=== PATIENT | male | born 1955 | race Caucasian/White ===

== ENCOUNTER → 2016-11-02 15:20 | Outpatient (CLI) | payer BC ==
[2016-06-06 08:16] VITALS: BMI 24.1
[~2016-11-02 15:20] MED LIST: ADDERALL 5 MG TA5 M1 PO; ASPIRIN EC81 M1 PO; CALAN SR240 MG PO; CALAN120 MG; CELEBREX200 MG PO; COZAAR25 MG PO; CYMBALTA30 MG PO; DEXILANT60 MG PO; DILAUDID2 MG PO; DILAUDID4 MG PO; ELIQUIS2.5 MG PO; IMITREX6 MG/0.51 SQ; MULTIPLE VITAMI1 TA1 PO; NEXIUM40 MG PO; PERCOCET 10/3251 TA1 PO; ROXICODONE30 MG PO; SEROQUEL50 MG PO; TOPROL XL25 MG PO; TRIAMTERENE-HCT1 TA1 PO; WELLBUTRIN SR150 MG PO
== END | disposition home or self-care (01) ==
LOC: D.CT 15:20
DX: R10.0 Acute abdomen (principal)

== ENCOUNTER → 2016-12-21 19:05 | Outpatient (CLI) | payer BC ==
[2016-06-06 08:16] VITALS: BMI 24.1
[~2016-12-21 19:05] MED LIST changes: -CALAN SR240 MG PO; -CALAN120 MG; -IMITREX6 MG/0.51 SQ; -SEROQUEL50 MG PO
== END | disposition home or self-care (01) ==
LOC: D.LABREF 19:05
DX: M87.9 Osteonecrosis, unspecified (principal); Z11.8 Encounter for screening for other infectious and parasitic diseases

== ENCOUNTER 2017-01-01 07:25 | Inpatient (IN) | payer BC ==
[2016-12-28 16:24] LABS: BASOPHILS 0.3 % (0.0-2.0); HEMATOCRIT 44.8 % (42.0-54.0); HEMOGLOBIN 14.3 g/dL (13.5-17.5); IMMATURE GRANULOCYTES 0.7 % (0-5); LYMPHOCYTES 35.5 % (15-50); MCH 30.6 pg (26.0-34.0); MCHC 31.9 g/dL (31.0-37.0); MCV 95.9 fL (80.0-100.0); MEAN PLATELET VOLUME 9.8 fL (7.4-10.4); MONOCYTES 6.6 % (2-11); NEUTROPHILS 53.9 % (40-80); RBC 4.67 10x6/uL (4.20-6.10); RDW 14.8 % (11.5-14.5); WBC 7.6 10x3/uL (4.8-10.8)
[2016-12-28 16:26] LABS: PLATELET COUNT 273 10x3/uL (130-400)
[2016-12-28 16:37] LABS: APPEARANCE HAZY (CLEAR); BACTERIA FEW /hpf (NONE SEEN); BILIRUBIN NEGATIVE (NEGATIVE); COLOR DK YELLOW (YELLOW); EPITHELIAL CELLS 0-5 /hpf (0-5); GLUCOSE NEGATIVE (NEGATIVE); HYALINE CAST 0-5 /lpf (NONE SEEN); KETONE NEGATIVE (NEGATIVE); MUCUS >1+ /lpf (NONE SEEN); NITRITE NEGATIVE (NEGATIVE); PROTEIN TRACE mg/dL (NEGATIVE); RED CELLS - URINE 0-5 /hpf (0-5); SPECIFIC GRAVITY 1.015 (1.005-1.020); WAXY CAST 0-5 /lpf (NONE SEEN)
[2016-12-28 16:38] LABS: LEUKOCYTE ESTERASE 1+ (NEGATIVE)
[2016-12-28 16:40] LABS: ANION GAP 13.8 mmol/L (8-16); APTT 26.5 SECONDS (22.8-39.4); CALCIUM 9.4 mg/dL (8.5-10.1); CARBON DIOXIDE 30.5 mmol/L (21.0-32.0); CREATININE - SERUM 1.3 mg/dL (0.6-1.3); INR 0.96 (0.85-1.17); POTASSIUM - SERUM 4.3 mmol/L (3.5-5.1); PROTIME 12.7 SECONDS (11.6-15.0)
[~2017-01-01 07:25] MED LIST changes: +CALAN SR240 MG PO; +IMITREX6 MG/0.51 SQ; +SEROQUEL50 MG PO
[2017-01-01] MEDS ORDERED: CALAN120 MG (09:15)
[2017-01-01] MEDS ORDERED: CALAN SR240 MG PO (09:15)
[2017-01-02 06:02] LABS: HEMATOCRIT 37.9 % (42.0-54.0); HEMOGLOBIN 11.9 g/dL (13.5-17.5); MCH 30.5 pg (26.0-34.0); MCHC 31.4 g/dL (31.0-37.0); MCV 97.2 fL (80.0-100.0); MEAN PLATELET VOLUME 10.5 fL (7.4-10.4); RBC 3.9 10x6/uL (4.20-6.10); RDW 15.2 % (11.5-14.5); WBC 8.7 10x3/uL (4.8-10.8)
[2017-01-03 05:52] LABS: HEMATOCRIT 36.8 % (42.0-54.0); HEMOGLOBIN 11.5 g/dL (13.5-17.5); MCH 30.4 pg (26.0-34.0); MCHC 31.3 g/dL (31.0-37.0); MCV 97.4 fL (80.0-100.0); MEAN PLATELET VOLUME 10.5 fL (7.4-10.4); RBC 3.78 10x6/uL (4.20-6.10); RDW 15.5 % (11.5-14.5); WBC 9.1 10x3/uL (4.8-10.8)
[2017-01-03] MEDS ORDERED: ELIQUIS2.5 MG PO (08:05)
[2017-01-03] MEDS ORDERED: DILAUDID4 MG PO (08:08)
== END 2017-01-03 12:35 | disposition home or self-care (01) | DRG 470 ==
LOC: D.SDCHOLD 07:25 → D.MS 13:58
PROVIDERS: ADMIT Orthopaedic Surgery
PROC: 0SRB04Z Replacement of Left Hip Joint with Ceramic on Polyethylene Synthetic Substitute, Open Approach (ICD-10-PCS; principal; 2017-01-01)
DX: M87.9 Osteonecrosis, unspecified (principal); I10 Essential (primary) hypertension; K21.9 Gastro-esophageal reflux disease without esophagitis; G44.009 Cluster headache syndrome, unspecified, not intractable

== ENCOUNTER 2017-01-10 02:48 | Emergency (ER) | payer BC ==
[2017-01-01 14:47] VITALS: BMI 23.9
[~2017-01-10 02:48] MED LIST changes: +CALAN120 MG
== END 2017-01-10 04:07 | disposition home or self-care (01) ==
LOC: D.ER 02:48
DX: G44.009 Cluster headache syndrome, unspecified, not intractable (principal); I10 Essential (primary) hypertension

== ENCOUNTER 2018-09-06 08:56 | Emergency (ER) | payer BC ==
[~2018-09-06] VITALS: Ht 180.3 cm; Wt 77.3 kg
[2018-09-06 09:07] VITALS: Ht 180.3 cm; Wt 77.3 kg
[2018-09-06] MEDS ORDERED: ROXICODONE30 MG PO (10:27)
[2018-09-06 10:55] VITALS: BP 121/76
== END 2018-09-06 10:55 | disposition home or self-care (01) ==
LOC: D.ER 08:56
DX: S09.90XA Unspecified injury of head, initial encounter (principal); W18.30XA Fall on same level, unspecified, initial encounter; Y93.89 Activity, other specified; Y92.012 Bathroom of single-family (private) house as the place of occurrence of the external cause; S02.2XXA Fracture of nasal bones, initial encounter for closed fracture

== ENCOUNTER 2018-09-13 05:50 | Day surgery (SDC) | payer BC ==
[~2018-09-13] VITALS: Ht 180.3 cm; Wt 72.6 kg
[~2018-09-13 05:50] MED LIST changes: +OXYCODONE-APAP1 TAB PO
[2018-09-13 06:10] LABS: HEMATOCRIT 40.5 % (42.0-54.0); HEMOGLOBIN 13.1 g/dL (13.5-17.5); MCH 30.3 pg (26.0-34.0); MCHC 32.3 g/dL (31.0-37.0); MCV 93.8 fL (80.0-100.0); MEAN PLATELET VOLUME 9.6 fL (7.4-10.4); RBC 4.32 10x6/uL (4.20-6.10); RDW 14.5 % (11.5-14.5); WBC 5.9 10x3/uL (4.8-10.8)
[2018-09-13 06:52] VITALS: BP 127/77; Ht 180.3 cm; Wt 72.6 kg
--- NOTE | 2018-09-13 10:18 | NUR ---
DC INSTRUCTIONS GIVEN TO PT. STATES UNDERSTANDING. DC'D IV CATH FULLY INTACT.
--- NOTE | 2018-09-13 10:27 | NUR ---
PT LEFT UNIT VIA WC AT 1026
--- NOTE | 2018-09-18 19:48 | OP ---
PATIENT NAME: JOSE LUIS VASQUES JR MEDICAL RECORD: [id number] :53 [facility] DATE: SURGEON: CARMEN CHAN MD DATE OF OPERATION: 09/13/2018 PREOPERATIVE DIAGNOSIS: Displaced nasal fracture. POSTOPERATIVE DIAGNOSIS: Displaced nasal fracture. PROCEDURE: Closed reduction nasal fracture. SURGEON: Carmen Chan MD ANESTHESIA: General. COMPLICATIONS: None. PACKING: None. SPLINTS: Junior splint externally. DISPOSITION: Recovery, stable. DESCRIPTION OF PROCEDURE: He was brought to the operating room and placed in supine position, sedated by anesthesia. He had been decongested with Afrin preoperatively. Using a headlight and nasal speculum, the nose was examined. Had little slight septal deviation, but not bad. No evidence of a septal fracture or hematoma. The nose was deviated to the right. A Boies elevator on the left side of the nose was used to palpate the nasal bones. Both right and left nasal bones were mobile. With digital pressure on the right side and the Boies elevator on the left side, the nasal pyramid was elevated and popped back over to the midline with some minor adjustments made. The skin of the nose was cleaned with alcohol. Steri-Strips were applied. A [place] splint was cut to size. The nose was carefully examined for good reduction and it looked nice and straight and a [place] splint was applied. Nasopharynx was suctioned. There was very minimal bleeding. He was awakened and transported to recovery in good condition. No complications. TRANSINT:[id number] Voice Confirmation ID: [id number] DOCUMENT ID: [id number] CARMEN CHAN MD at 1948 CC: [id number] DICTATION DATE: 09/13/18819 HISTOPATHOLOGY TECHNICIAN: 09/13/18 0852 [facility] 09/13/18 [place] [id number] [place] [id number]
--- NOTE | 2018-09-18 19:48 | HP ---
PATIENT: JOSE LUIS VASQUES JR MEDICAL RECORD: [id number] ACCOUNT: [id number] [facility] : 53 ADMISSION DATE: 09/13/18 PCP: MINERVA PARKER MD HISTORY AND PHYSICAL EXAMINATION HISTORY: Jose Luis is 62. He tripped in the bathroom last week and sustained a displaced nasal fracture. He is being admitted for closed reduction of nasal fracture. PAST MEDICAL HISTORY: Includes coronary artery disease, hypertension, and stomach ulcers. PAST SURGICAL HISTORY: Includes rotator cuff repairs, lumbar fusion, bilateral hip replacements, and mitral valve repair. CURRENT MEDICATIONS: Include Dexilant, Toprol, losartan, Wellbutrin, Cymbalta, Percocet, and Pepcid. ALLERGIES: HYDROCODONE. PHYSICAL EXAMINATION: GENERAL: He is healthy appearing, alert, oriented. HEENT: Face; he has a displaced nasal fracture by depression of left nasal bone. 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 Eyes; Sclerae and conjunctivae are normal. Facial bones, orbital rims, mandible, and zygoma are all intact and stable. Ears; canals and TMs are normal. On intranasal exam, some septal deviation, but nothing that looks like a hematoma or acute trauma or fracture to the septum. The nasal mucosa looks good. Oral cavity and oropharynx are normal. NECK: Cranial nerves are normal. No masses. No adenopathy. IMPRESSION: Displaced nasal fracture. PLAN: Closed reduction of nasal fracture. TRANSINT:[id number] Voice Confirmation ID: [id number] DOCUMENT ID: [id number] CARMEN LUNA MD at 1948 CC: [id number] DICTATION DATE: 09/12/18 1434 HEAD CONTROL CLERK: 09/12/18 1553 [facility] 09/13/18 [place] [id number]
== END 2018-09-13 10:26 | disposition home or self-care (01) ==
LOC: D.OPS 05:50
PROVIDERS: Anesthesiology
DX: S02.2XXA Fracture of nasal bones, initial encounter for closed fracture (principal); W01.0XXA Fall on same level from slipping, tripping and stumbling without subsequent striking against object, initial encounter; I25.10 Atherosclerotic heart disease of native coronary artery without angina pectoris; I10 Essential (primary) hypertension; Z98.1 Arthrodesis status; Z96.643 Presence of artificial hip joint, bilateral; Z79.891 Long term (current) use of opiate analgesic; Z79.899 Other long term (current) drug therapy; Z88.5 Allergy status to narcotic agent; Z01.812 Encounter for preprocedural laboratory examination

== ENCOUNTER → 2018-12-19 14:49 | Outpatient (CLI) | payer BC ==
[~2018-12-19 14:49] MED LIST changes: +FUROSEMIDE20 MG PO; +K-DUR20 MEQ PO; +PERCOCET 10-321 EAC1 PO; +TESTOSTERONE IM
--- NOTE | 2019-01-01 13:33 | EC ---
PATIENT:JOSE LUIS VASQUES DATE OF SERVICE: 12/19/18 SEX: M MEDICAL RECORD: [id number] DATE OF : 53 LOCATION:[facility] AGE OF PATIENT: 63 ADMISSION DATE: 12/19/18 REFERRING PHYSICIAN: INTERPRETING PHYSICIAN: ALEXANDER ROJAS MD ECHOCARDIOGRAM REPORT ECHO CHARGES 4 ECHO COMPLETE Date: 12/19/18 CLINICAL DIAGNOSIS: CARDIOMYOPATHY, MV REPAIR ECHOCARDIOGRAPHIC MEASUREMENTS (adult normal given) AC root (d.<3.7cm) 3.6 cm LV Septum d (<1.2 cm> 1.1 cm Valve Excursion 1.3 cm LV Septum (systole) 1.2 cm Left Atria (s.<4.0cm> cm LVPW d(<1.2cm) 1.3 cm RV (d.<2.3cm) 3.9 cm LVPW (sytole) 1.5 cm LV diastole(<5.6CM) 6.6 cm MV E-F(>70mm/sec) cm LV systole 5.9 cm LVOT Diameter 2.1 cm MV exc.(>10mm) 1.45 cm Est.ejection fraction (50-75%) % DOPPLER: LVIT cm/sec A 124 cm/sec E 53.0 cm/sec LA cm/sec RVSP 17 mmHg LVOT 57 cm/sec AOP1/2T m/s Asc. Ao 87 cm/sec RVOT cm/sec RA 73 cm/sec PA 85 cm/sec AV Gradient Peak 3.05 mmHg AV Mean 1.47 mmHg AV Area 3.0 cm MV Gradient Peak 12.44mmHg MV Mean 3.01 mmHg MV Area cm COMMENTS: Register Clerk: 2 ALEA MARY Piece Jobber: 3 Dr. Bello TAPE# PACS Pericardial Effusion N DATE OF SERVICE: Adequate 2D, color flow, spectral Doppler, and M-mode. No LVH. LV internal dimensions are normal. LV is mildly globally hypo with reduced EF, estimated EF 40% to 45%. Aortic valve is tricuspid. No evidence of stenosis by Doppler interrogation. Left atrium dilated at 5.2 cm. Mitral valve is post-repair with acceptable Doppler velocity and mild plus MR. Right-sided chambers grossly normal. Mild TR. ECHOCARDIOGRAM REPORT [id number] VIVIANA VASQUESEDMUNDO Mcleod JR TRANSINT:[id number] Voice Confirmation ID: [id number] DOCUMENT ID: [id number] ALEXANDER ROJAS MD at 1333 CC: [id number] DICTATION DATE: 12/30/18 1254 GENERAL MANAGER ORACLE DATA CLOUD: 12/30/18 1350 DEP CLI 12/19/18 [place] [id number] [place] [id number]
== END | disposition home or self-care (01) ==
LOC: D.HCCARDIO 14:49
DX: I42.9 Cardiomyopathy, unspecified (principal)

== ENCOUNTER 2019-05-29 08:28 | Day surgery (SDC) | payer BC ==
[2019-05-27 12:31] LABS: HEMATOCRIT 45.7 % (42.0-54.0); HEMOGLOBIN 15.2 g/dL (13.5-17.5); MCH 29.9 pg (26.0-34.0); MCHC 33.3 g/dL (31.0-37.0); MEAN PLATELET VOLUME 9.9 fL (7.4-10.4); RBC 5.08 10x6/uL (4.20-6.10); RDW 14.1 % (11.5-14.5); WBC 7.1 10x3/uL (4.8-10.8)
[~2019-05-29] VITALS: Ht 180.3 cm; Wt 77.1 kg
[~2019-05-29 08:28] MED LIST changes: -FUROSEMIDE20 MG PO; -K-DUR20 MEQ PO; -PERCOCET 10-321 EAC1 PO
[2019-05-29] MEDS ORDERED: FUROSEMIDE20 MG PO (08:51)
[2019-05-29] MEDS ORDERED: K-DUR20 MEQ PO (08:52)
[2019-05-29 08:59] VITALS: BP 137/83; Ht 180.3 cm; Wt 77.1 kg
[2019-05-29] MEDS ORDERED: PERCOCET 10-321 EAC1 PO (11:08)
--- NOTE | 2019-05-29 13:26 | OP ---
PATIENT NAME: JOSE LUIS VASQUES JR MEDICAL RECORD: [id number] :53 LOC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 PROCEDURES: 1. Removal of heterotopic ossification of the superior and inferior aspect of the greater trochanter. 2. Removal of multiple loose bodies and previously placed sutures. 3. Application of platelet rich plasma. SURGEON: Valerie Ramos MD VOIP NETWORK ENGINEER: KAI Oshea INTRAOPERATIVE COMPLICATIONS: None. SUMMARY OF PATHOLOGIC FINDINGS: The patient did have 3 firm loose bodies that appeared to be residual fat necrosis. These were sent to the lab as a separate specimen from the osteophytes. The patient had a very large inferior osteophyte abutting the IT band and the patient also had a heterotopic ossification in the superior aspect of the greater trochanter within the gluteus medius. This loose bodies as well as previously placed Ethibond sutures were removed. He was reapproximated with dissolvable Vicryl this time. OPERATIVE SUMMARY IN DETAIL: After obtaining the appropriate preoperative orthopedic surgery consent as well as anesthetic consultation, evaluation, and clearance, the patient was brought to the operating room and placed on the operating room table in supine position. After adequate general laryngeal mask airway was administered, the patient was placed in a left lateral decubitus position. All pressure points were well padded to include down leg peroneal pad as well as axillary roll. The patient was held firmly to the operating table using the vacuum pack suction system. Left hip and lower extremity were prepped and draped in a routine sterile fashion. Incision was made directly over the prior total hip incision, taken down to the level of the IT band. Just above the IT band, the patient had 3 very firm loose bodies in and around the area of what appeared to be a bursa that had formed over the IT band. These were removed and sent for pathologic specimen. At this point, all of the previously placed Ethibond sutures were removed as this is a very thin person with some pain from the sutures as you could palpate them under his incision line. These were all removed. The IT band was then split and dissection was carried down to take off as minimal amount of vastus lateralis as needed to expose the entire osteophyte, which also was sent for pathology after it was taken down with an osteotome. After osteotome removal of the osteophyte, the area was smoothed and rasped, irrigated and then the interstices of the cancellous bone were filled with bone wax in order to hopefully prevent further osteophyte formation. Having completed this, dissection was carried down into the gluteus medius where several large areas of heterotopic ossification were found within the muscle. These were gently excised with as little damage to the muscle as possible. Having completed this and sending the osteophytes, the greater trochanter as a OPERATIVE REPORT [id number] JOSE LUIS VASQUES JR separate specimen, the area was irrigated and then it was filled with 10 cc of platelet rich plasma derived from the patient himself spun using the [facility] Micky system. The PRP was placed half into the muscle belly underneath the IT band. The IT band was then closed with #1 Vicryl in a [id number] fashion. Having completed this, further PRP was injected in and around the incision. The incision was then closed with #1 Vicryl followed by skin dimitrios. Sterile dressings were applied. The patient was awakened, taken to recovery room in stable condition. All final needle and sponge counts were correct. TRANSINT:[id number] Voice Confirmation ID: [id number] DOCUMENT ID: [id number] RICHARD CORMIER, VALERIE GREER at 1326 CC: [id number] DICTATION DATE: 05/29/19 1113 IRRIGATION EQUIPMENT REMOVER: 05/29/19 1126 [place] [id number] [place] [address]
--- NOTE | 2019-05-29 14:05 | NUR ---
PATIENT AMBULATING AROUND ROOM WITH WALKER, PATIENT STATES HAS A WALKER AND CANE AT HOME. PATIENT DENIES DIZZINESS OR UNSTEADINESS. PATIENT DISCHARGED HOME VIA WHEELCHAIR TO PRIVATE VEHICLE WITH BROTHER AND SISTER
== END 2019-05-29 14:00 | disposition home or self-care (01) ==
LOC: D.OPS 08:28 → D.PAN 13:00 → D.OPS 14:00 → D.PAN 15:00
PROVIDERS: Anesthesiology; ATTEND Orthopaedic Surgery
DX: M94.8X6 Other specified disorders of cartilage, lower leg (principal); M24.051 Loose body in right hip
CPT/HCPCS: 27033; 0232T

== ENCOUNTER → 2019-08-12 14:14 | Outpatient (CLI) | payer BC ==
[2019-05-29 08:59] VITALS: BMI 24.0
[~2019-08-12 14:14] MED LIST changes: +FUROSEMIDE20 MG PO; +K-DUR20 MEQ PO; +PERCOCET 10-321 EAC1 PO
== END | disposition home or self-care (01) ==
LOC: D.MRI 13:30
PROVIDERS: ATTEND Orthopaedic Surgery
DX: M54.12 Radiculopathy, cervical region (principal)

== ENCOUNTER → 2019-12-10 09:50 | Outpatient (CLI) | payer MEDICARE, BC ==
[2019-05-29 08:59] VITALS: BMI 24.0
--- NOTE | 2019-12-11 09:07 | EC ---
PATIENT:JOSE LUIS VASQUES JR DATE OF SERVICE: 12/10/19 SEX: M MEDICAL RECORD: [id number] DATE OF : 53 LOCATION:[facility] AGE OF PATIENT: 64 ADMISSION DATE: 12/10/19 REFERRING PHYSICIAN: INTERPRETING PHYSICIAN: ALEXANDER ROJAS MD ECHOCARDIOGRAM REPORT ECHO CHARGES 4 ECHO COMPLETE Date: 12/10/19 CLINICAL DIAGNOSIS: MV REPAIR/EDEMA H/O HTN ECHOCARDIOGRAPHIC MEASUREMENTS (adult normal given) AC root (d.<3.7cm) 4.0 cm LV Septum d (<1.2 cm> 1.2 cm Valve Excursion 2.2 cm LV Septum (systole) 1.4 cm Left Atria (s.<4.0cm> 2.9 cm LVPW d(<1.2cm) 1.1 cm RV (d.<2.3cm) 2.6 cm LVPW (sytole) 1.6 cm LV diastole(<5.6CM) 7.2 cm MV E-F(>70mm/sec) cm LV systole 5.9 cm LVOT Diameter 2.1 cm MV exc.(>10mm) cm Est.ejection fraction (50-75%) % DOPPLER: LVIT cm/sec A cm/sec E 173 cm/sec LA cm/sec RVSP mmHg LVOT 80.0 cm/sec AOP1/2T m/s Asc. Ao 91.0 cm/sec RVOT 46.0 cm/sec RA cm/sec PA 66.0 cm/sec AV Gradient Peak 3.3 mmHg AV Mean 1.7 mmHg AV Area 3.4 cm MV Gradient Peak 12.0 mmHg MV Mean 4.3 mmHg MV Area cm COMMENTS: OP - HC Statistical Technician: 1 CHAVA ZEHRA Lap Checker: 3 Dr. Bello TAPE# PACS Pericardial Effusion N DATE OF SERVICE: Adequate 2D, color flow imaging, spectral Doppler, and M-Mode. Mild LVH. LV internal dimensions are dilated. LV is globally hypokinetic with reduced EF, estimated EF 25%. Aortic valve is tricuspid with good valve excursion. No evidence of stenosis by Doppler interrogation. No significant AI. Left atrium is normal at 2.9 cm. Mitral valve is status post mitral valve repair with acceptable Doppler velocities. Mild MR. Right-sided chambers are grossly normal. Trace TR. ECHOCARDIOGRAM REPORT [id number] JOSE LUIS VASQUES JR TRANSINT:[id number] Voice Confirmation ID: [id number] DOCUMENT ID: [id number] ALEXANDER ROJAS MD at 0907 CC: [id number] DICTATION DATE: 12/10/19 1356 FIELD ASSESSOR: 12/10/19 1545 DEP CLI 12/10/19 [place] [id number]
== END | disposition home or self-care (01) ==
LOC: D.HCCECHO 09:30
PROVIDERS: ATTEND Internal Medicine Interventional Cardiology
DX: I34.0 Nonrheumatic mitral (valve) insufficiency (principal)

== ENCOUNTER → 2020-04-07 10:17 | Outpatient (CLI) | payer MEDICARE, BC ==
[2019-05-29 08:59] VITALS: BMI 24.0
--- NOTE | 2020-04-09 09:27 | EC ---
PATIENT:JOSE LUIS VASQUES JR DATE OF SERVICE: 04/07/20 SEX: M MEDICAL RECORD: [id number] DATE OF : 53 LOCATION:[facility] AGE OF PATIENT: 64 ADMISSION DATE: 04/07/20 REFERRING PHYSICIAN: INTERPRETING PHYSICIAN: ALEXANDER ROJAS MD ECHOCARDIOGRAM REPORT ECHO CHARGES 4 ECHO COMPLETE Date: 04/07/20 CLINICAL DIAGNOSIS: MITRAL REGURG WITH MV REPAIR ASSESS EF ECHOCARDIOGRAPHIC MEASUREMENTS (adult normal given) AC root (d.<3.7cm) 4.2 cm LV Septum d (<1.2 cm> 0.90 cm Valve Excursion 1.9 cm LV Septum (systole) 1.2 cm Left Atria (s.<4.0cm> 4.0 cm LVPW d(<1.2cm) 1.2 cm RV (d.<2.3cm) 3.6 cm LVPW (sytole) 1.4 cm LV diastole(<5.6CM) 5.7 cm MV E-F(>70mm/sec) cm LV systole 4.3 cm LVOT Diameter 1.9 cm MV exc.(>10mm) 1.6 cm Est.ejection fraction (50-75%) % DOPPLER: LVIT cm/sec A 160.0cm/sec E 90.0 cm/sec LA cm/sec RVSP 16 mmHg LVOT 85 cm/sec AOP1/2T m/s Asc. Ao 97 cm/sec RVOT 54 cm/sec RA cm/sec PA 86 cm/sec AV Gradient Peak 3.0 mmHg AV Mean 1.5 mmHg AV Area 3.8 cm MV Gradient Peak 12.01mmHg MV Mean 4.3 mmHg MV Area cm COMMENTS: Production Scheduler: 2 ALEA MARY Dust Collector Treater: 3 Dr. Bello TAPE# PACS Pericardial Effusion N DATE OF SERVICE: Adequate 2D, color flow imaging, spectral Doppler, and M-Mode. No LVH. LV internal dimension is upper limits of normal 5.7 cm. LV is mildly globally hypo with EF mildly reduced at 40% to 45%. Aortic valve is tricuspid. No evidence of stenosis on Doppler interrogation. Left atrium was normal at 4.0 cm. Mitral valve is status post repair with acceptable Doppler velocity and no more than mild MR. Right-sided chambers are grossly normal. Trivial TR. Note, interval improvement in LV function from previous echo. ECHOCARDIOGRAM REPORT [id number] CAPRICEJOSE LUIS JR TRANSINT:[id number] Voice Confirmation ID: [id number] DOCUMENT ID: [id number] ALEXANDER ROJAS MD at 0927 CC: [id number] DICTATION DATE: 04/08/20 1432 FLAT POLISHER: 04/08/20 2156 DEP CLI 04/07/20 [place] [id number] [place] [address]
== END | disposition home or self-care (01) ==
LOC: D.HCCECHO 10:00
PROVIDERS: ATTEND Internal Medicine Interventional Cardiology
DX: I34.0 Nonrheumatic mitral (valve) insufficiency (principal)

== ENCOUNTER 2021-03-07 20:26 | Emergency (ER) | payer MEDICARE, BC ==
[~2021-03-07] VITALS: Ht 180.3 cm; Wt 77.1 kg
[2021-03-07 20:42] VITALS: Ht 180.3 cm; Wt 77.1 kg
[2021-03-07] MEDS ORDERED: CEPHALEXIN500 M1 PO (22:45)
[2021-03-07 23:20] VITALS: BP 110/71
== END 2021-03-07 23:20 | disposition home or self-care (01) ==
LOC: D.ER 20:26
DX: S01.81XA Laceration without foreign body of other part of head, initial encounter (principal); S16.1XXA Strain of muscle, fascia and tendon at neck level, initial encounter; S00.83XA Contusion of other part of head, initial encounter; S09.90XA Unspecified injury of head, initial encounter; I10 Essential (primary) hypertension; G62.9 Polyneuropathy, unspecified; K21.9 Gastro-esophageal reflux disease without esophagitis; W19.XXXA Unspecified fall, initial encounter; Y93.9 Activity, unspecified; Y92.9 Unspecified place or not applicable